=== PATIENT | female | born 1995 | race Caucasian/White ===

== ENCOUNTER 2018-05-12 14:49 | Emergency (ER) | payer MEDICAID ==
[2018-05-12] MEDS ORDERED: OXYMETAZOLINE HCL 0.05% NASAL SPRAY 15 ML BOTTLE NASL ONE (15:15)
[2018-05-12] MEDS ORDERED: ACETAMINOPHEN 325 MG TABLET PO ONE (15:16)
[2018-05-12] MEDS ORDERED: DIPHENHYDRAMINE HCL 50 MG CAPSULE PO ONE (15:18)
--- NOTE | 2018-05-12 15:51 | ER Document Report ---
ED General - General Chief Complaint: Nose Bleed Stated Complaint: BLOODY NOSE Time Seen by Provider: 05/12/18 15:06 Mode of Arrival: Ambulatory Information source: Patient, [facility] Records Notes: 22-year-old female with no reported past medical history at 22 weeks gestation presents with complaint of nosebleed that started 1 hour prior to arrival and self resolved upon my exam. Patient denies any injury to the nose. She does admits to some nasal congestion and associated frontal headache that she describes as a dull ache. She has not tried taking any Tylenol for this. She has been receiving care. She denies any abdominal pain or vaginal bleeding. TRAVEL OUTSIDE OF THE [place] IN LAST 30 DAYS: No - HPI Onset: Just prior to arrival Onset/Duration: Sudden, Gone Quality of pain: No pain Severity: Mild Associated symptoms: Headache Exacerbated by: Denies Relieved by: Denies Similar symptoms previously: No Recently seen / treated by doctor: No - Related Data Allergies/Adverse Reactions: No Known Allergies Allergy (Unverified 05/12/18 14:52) Past Medical History - General Information source: Patient, [facility] Records - Social History Smoking Status: Current Every Day Smoker Cigarette use (# per day): Yes - 8 Smoking Education Provided: Yes - Smoking cessation counseling was provided for 4 minutes at the bedside Frequency of alcohol use: None Drug Abuse: None Lives with: Family Family History: Reviewed & Not Pertinent Patient has suicidal ideation: No Patient has homicidal ideation: No - Medical History Medical History: Negative Renal/ Medical History: Denies: Hx Peritoneal Dialysis Review of Systems - Review of Systems Notes: REVIEW OF SYSTEMS: CONSTITUTIONAL : Denies fever, chills, or sweats. Denies recent illness. Denies weight loss, recent hospitalizations. EENT: Denies visual changes, eye pain. Denies sore throat, oral lesions, difficulty swallowing. CARDIOVASCULAR: Denies chest pain. Denies palpitations. Denies lower extremity edema. RESPIRATORY: Denies cough. Denies shortness of breath, wheezing. GASTROINTESTINAL: Denies abdominal pain or distention. Denies nausea, vomiting , or diarrhea. Denies blood in vomitus, stools, or per rectum. Denies black, tarry stools. Denies constipation. GENITOURINARY: Denies difficulty urinating, painful urination, frequency, blood in urine, or vaginal discharge. MUSCULOSKELETAL: Denies back or neck pain or stiffness. Denies joint pain or swelling. SKIN: Denies rash, lesions or sores. HEMATOLOGIC : Denies easy bruising or bleeding. LYMPHATIC: Denies swollen glands. NEUROLOGICAL: Denies confusion or altered mental status. Denies loss of consciousness. Denies dizziness or lightheadedness. Denies weakness or paralysis. Denies problems difficulty with ambulation, slurred speech. Denies sensory loss, numbness, or tingling. Denies seizures. PSYCHIATRIC: Denies anxiety or stress. Denies depression, suicidal ideation, or homicidal ideation. Denies visual or auditory hallucinations. Physical Exam - Vital signs Vitals: Temp Pulse Resp BP Pulse Ox 98.6 F 94 20 143/83 H 100 05/12/18 15:08 05/12/18 15:08 05/12/18 15:08 05/12/18 15:08 05/12/18 15:08 Interpretation: Hypertensive - Notes Notes: PHYSICAL EXAMINATION: GENERAL: Well-appearing, well-nourished and in no acute distress. HEAD: Atraumatic, normocephalic. EYES: Pupils equal round and reactive to light, extraocular movements intact, conjunctiva are normal. ENT: Nares patent, no active bleeding from the nose. Moist mucous membranes. NECK: Normal range of motion, supple without lymphadenopathy LUNGS: Breath sounds clear to auscultation bilaterally and equal. No wheezes rales or rhonchi. HEART: Regular rate and rhythm without murmurs ABDOMEN: Gravid, soft, nontender, nondistended abdomen. No guarding, no rebound. No masses appreciated. Female : deferred Musculoskeletal: Normal range of motion, no pitting or edema. No cyanosis. NEUROLOGICAL: Cranial nerves grossly intact. Normal speech, normal gait. Normal sensory, motor exams PSYCH: Normal mood, normal affect. SKIN: Warm, Dry, normal turgor, no rashes or lesions noted. Course - Re-evaluation Re-evalutation: 05/12/18 16:19 Patient was monitored in the emergency department for over an hour and a half without recurrence of bleeding. We did use Afrin during her ED course. 22-year-old female presents with a nosebleed that occurred just prior to arrival and self resolved upon my exam. Patient initially mildly hypertensive. We did discuss this and she states that her OB is monitoring her blood pressure because she does have a history of preeclampsia. Repeat blood pressure without intervention was within normal limits. Patient was given Afrin and monitored in the department for almost 2 hours. She had no recurrence of bleeding. She was advised to use nasal saline daily and Afrin for 3 days. Patient was evaluated and treated as appropriate for the patient's presenting symptoms and complaint, with consideration of any critical or life threatening conditions that may be associated with their obtained history and exam as noted above. All results were discussed with patient and... Patient provided the opportunity to ask questions, and express concerns. Patient was educated on treatments based on their presumed diagnosis as noted above. At this time we will discharge the patient with return precautions and follow-up recommendations. Verbal discharge instructions given a the bedside. Medication warnings reviewed. Patient is in agreement with this plan and has verbalized understanding of return precautions. After careful consideration I feel that that patient can be safely discharged from the emergency department, they were advised to followup with a primary care physician in 2-3 days. Dictation on this chart was performed using voice recognition software and may result in unintended grammatical, spelling, syntax or errors. 05/13/18 09:17 - Vital Signs Vital signs: Temp Pulse Resp BP Pulse Ox 98.6 F 86 17 129/79 H 100 05/12/18 16:15 05/12/18 16:15 05/12/18 16:15 05/12/18 16:15 05/12/18 16:15 Discharge - Discharge Clinical Impression: Nosebleed, Elevated blood pressure reading, Second trimester Condition: Good Disposition: HOME, SELF-CARE Instructions: Hypertension in ([facility]), Nosebleed Instructions ([facility]) Additional Instructions: You were seen today for a nosebleed. If this restarts please apply direct pressure to the area for 15 minutes without releasing pressure. You can use 4- 5 sprays the Afrin (oxymetazoline) spray that was given to you here in the emergency room into the affected side prior to applying the pressure. You need to apply vasaline or a similar product along the inside of the side of the nose that is bleeding twice daily to help heal the inside of your nose. Please return to emergency department if these measures do not control the bleeding. Please also return if you pass out, have significant pain of the nose or face, or any other symptoms that are concerning to you. Your primary care doctor regarding today's visit.it. Prescriptions: Sodium Chloride [[place] Nasal [place] 44 ml Bottle] 2 spray NASL BID #1 bottle Forms: Elevated Blood Pressure Referrals: CHEPE MOORE MD [ACTIVE STAFF] - Follow up in 3-5 days
[2018-05-12 16:15] VITALS: BP 129/79
== END 2018-05-12 16:18 | disposition home or self-care (01) ==
LOC: ER 14:49
DX: O26.892 Other specified pregnancy related conditions, second trimester (principal); R04.0 Epistaxis; R03.0 Elevated blood-pressure reading, without diagnosis of hypertension; R09.81 Nasal congestion; R51 Headache; O99.332 Smoking (tobacco) complicating pregnancy, second trimester; F17.210 Nicotine dependence, cigarettes, uncomplicated; Z71.6 Tobacco abuse counseling; Z3A.22 22 weeks gestation of pregnancy
CPT/HCPCS: 99406; 99283; J3490 ×3

== ENCOUNTER 2018-05-22 16:44 | Outpatient (CLI) | payer MEDICAID ==
[2018-05-22] MEDS ORDERED: RINGERS SOLUTION,LACTATED 1,000 ML IV PRN (17:05)
[2018-05-22] MEDS ORDERED: RINGERS SOLUTION,LACTATED 1,000 ML IV ONE (17:05)
[2018-05-22 17:44] LABS: BILIRUBIN,URINE NEGATIVE (NEGATIVE); GLUCOSE, URINE NEGATIVE (NEGATIVE); KETONES,URINE NEGATIVE (NEGATIVE); LEUKOCYTE ESTERASE,URINE TRACE (NEGATIVE); NITRITE,URINE NEGATIVE (NEGATIVE); PROTEIN,URINE >=500 mg/dL (NEGATIVE); URINE SPECIFIC GRAVITY 1.017; UROBILINOGEN,URINE NEGATIVE mg/dL (<2.0)
[2018-05-22 17:45] LABS: APPEARANCE,URINE TURBID; COLOR,URINE RED
[2018-05-22] MEDS ORDERED: CEFTRIAXONE INJ 1000 MG VIAL IV ONE (18:00)
[2018-05-22] MEDS ORDERED: CEFTRIAXONE INJ 1000 MG VIAL ONE (18:02)
[2018-05-22 18:37] LABS: URINE AMPHETAMINES SCREEN NEGATIVE; URINE BARBITURATES SCREEN NEGATIVE; URINE BENZODIAZEPINES SCREEN NEGATIVE; URINE COCAINE SCREEN NEGATIVE; URINE MARIJUANA (THC) SCREEN NEGATIVE; URINE METHADONE SCREEN NEGATIVE; URINE PHENCYCLIDINE SCREEN NEGATIVE
== END 2018-05-22 18:50 | disposition home or self-care (01) ==
LOC: LC 16:44
PROVIDERS: ATTEND Obstetrics & Gynecology Gynecology
PROC: 4A1HXCZ Monitoring of Products of Conception, Cardiac Rate, External Approach (ICD-10-PCS; principal; 2018-05-22)
DX: O23.42 Unspecified infection of urinary tract in pregnancy, second trimester (principal); Z3A.24 24 weeks gestation of pregnancy
CPT/HCPCS: 59899; 87086; 87088; 81001; 87186; 80307; J0696

== ENCOUNTER 2018-08-11 10:42 | Outpatient (CLI) | payer MEDICAID ==
[2018-08-11] MEDS ORDERED: NALBUPHINE HCL INJ 10 MG/1 ML AMPULE ONE (10:54)
[2018-08-11] MEDS ORDERED: PROMETHAZINE HCL INJ 25 MG/1 ML VIAL ONE (10:55)
--- NOTE | 2018-08-11 11:17 | Non Stress Test Report ---
Non Stress Test Datetime Report Generated by CPN: 08/11/2018 11:17 DEMOGRAPHIC EGA NST: 35.5 INDICATION Indication for Study: Other Indication for Study (NST) Other: repeat NST MONITORING Monitor Explained: Monitor Explained; Test Explained; Patient Verbalized Understanding Time on Monitor: 08/11/2018 10:52 Time off Monitor: 08/11/2018 11:15 NST Duration: 23 NST INTERVENTIONS NST Interventions: None Physician Notified NST: Le Corea CNM BABY A: [id number] BABY A Movement : Present Movement : Present Contraction Frequency : none Contraction Frequency : none FHR Baseline : 140 Accelerations : 15X15 Decelerations : None Decelerations : None Variability : Moderate 6-25bpm Variability : Moderate 6-25bpm NST Review: Meets Criteria for Reactive NST NST Review: Meets Criteria for Reactive NST NST Review and Verified By : Jacqueline Mendoza RN NST Results: Reactive NST Results: Reactive NST REPORT Report Trigger: Send Report
== END 2018-08-11 11:19 | disposition home or self-care (01) ==
LOC: LC 10:42
PROVIDERS: ATTEND Student in an Organized Health Care Education/Training Program
PROC: 4A1HXCZ Monitoring of Products of Conception, Cardiac Rate, External Approach (ICD-10-PCS; principal; 2018-08-11)
DX: O24.419 Gestational diabetes mellitus in pregnancy, unspecified control (principal); Z3A.35 35 weeks gestation of pregnancy
CPT/HCPCS: 59025; J2300; J2550

== ENCOUNTER 2018-08-26 12:07 | Inpatient (IN) | payer MEDICAID ==
[2018-08-26 12:41] LABS: APPEARANCE,URINE CLEAR; BILIRUBIN,URINE NEGATIVE (NEGATIVE); COLOR,URINE YELLOW; GLUCOSE, URINE NEGATIVE (NEGATIVE); KETONES,URINE NEGATIVE (NEGATIVE); LEUKOCYTE ESTERASE,URINE TRACE (NEGATIVE); NITRITE,URINE NEGATIVE (NEGATIVE); PROTEIN,URINE NEGATIVE (NEGATIVE); UROBILINOGEN,URINE NEGATIVE mg/dL (<2.0)
[2018-08-26] MEDS ORDERED: BUTALB/ACETAMINOPHEN/CAFFEINE 1 TAB EACH ONE (12:46)
[2018-08-26] MEDS ORDERED: BUTALB/ACETAMINOPHEN/CAFFEINE 1 TAB EACH PO ONE (12:48)
[2018-08-26] MEDS ORDERED: RINGERS SOLUTION,LACTATED 1,000 ML IV ONE (12:51)
[2018-08-26] MEDS ORDERED: DINOPROSTONE 10 MG VAGINAL INSERT.SR PV PRN (12:57)
[2018-08-26 13:00] LABS: URINE AMPHETAMINES SCREEN NEGATIVE; URINE BARBITURATES SCREEN NEGATIVE; URINE BENZODIAZEPINES SCREEN NEGATIVE; URINE COCAINE SCREEN NEGATIVE; URINE MARIJUANA (THC) SCREEN NEGATIVE; URINE METHADONE SCREEN NEGATIVE; URINE PHENCYCLIDINE SCREEN NEGATIVE
[2018-08-26 13:01] LABS: UR PRO/CREAT RATIO RESULT 0.3 mg/mg (0.0-0.2); URINE CREATININE 84.2 mg/dL (16-327)
[2018-08-26 13:14] LABS: ABSOLUTE EOSINOPHILS # (AUTO) 0.1 10^3/uL (0.0-0.6); ABSOLUTE LYMPHOCYTES (AUTO) 1.9 10^3/uL (0.5-4.7); ABSOLUTE MONOCYTES (AUTO) 0.4 10^3/uL (0.1-1.4); ABSOLUTE NEUT (AUTO) 6.4 10^3/uL (1.7-8.2); BASOPHILS % (AUTO) 0.5 % (0-2); EOSINOPHILS % (AUTO) 0.6 % (0-6); HEMOGLOBIN 11.3 g/dL (12.0-15.5); LYMPHOCYTES % (AUTO) 21.6 % (13-45); MEAN CORPUSCULAR HEMOGLOBIN 28.6 pg (27.0-33.4); MEAN CORPUSCULAR HGB CONC 34.3 g/dL (32.0-36.0); MEAN CORPUSCULAR VOLUME 84 fl (80-97); MONOCYTES % (AUTO) 4.5 % (3-13); PLATELET COUNT 240 10^3/uL (150-450); RED BLOOD COUNT 3.95 10^6/uL (3.72-5.28); RED CELL DISTRIBUTION WIDTH 15.3 % (11.5-14.0); SEGMENTED NEUTROPHILS % (AUTO) 72.8 % (42-78); TOTAL CELLS COUNTED % (AUTO) 100 %; WHITE BLOOD COUNT 8.7 10^3/uL (4.0-10.5)
--- NOTE | 2018-08-26 13:23 | Admission Physical ---
Datetime Report Generated by CPN: 08/26/2018 13:22 CURRENT ADMISSION Chief Complaint: Other Chief Complaint Other: To L_D today for c/o high bp at home this am and headache Indication for Induction: PreEclampsia Admit Impression : Term, Intrauterine ; No Active Labor Admit Plan: Admit to Unit Admit Plan- Other: Pr/Cr ratio 0.4mg on 08/21/18 ALLERGIES Medication Allergies: No Medication Allergies: No Known Allergies (08/26/2018) Latex: No Latex Allergies OBSTETRICAL HISTORY EDC: 09/10/2018 00:00 : 2 (Annotations: Data stored by [facility] on behalf of user) Para: 1 Livin Gestational Diabetes: No Rh Sensitization: No Incompetent Cervix: No DOC: No Infertility: No ART Treatment: No Uterine Anomaly: No IUGR: No Hx Previous C/S: No Macrosomia: No Hx Loss/Stillborn: No PIH: No Hx : No Placenta Previa/Abruption: No Depression/PP Depression: No PTL/PROM: No Post Hemorrhage: No Obstetrical History Comments: G1 2011 boy G2 current SEE RECORDS Alcohol: No Marijuana : No Cocaine: No Other Illicit Drugs: No Cigarettes: Current Everyday Smoker. [id number] MEDICAL HISTORY Diabetes: No Diabetes Type: Gestational Diabetes Blood Transfusion: No Pulmonary Disease (Asthma, TB): No Breast Disease: No Hypertension: No Pediatric Oncologist Surgery: No Heart Disease: No Hosp/Surgery: No Autoimmune Disorder: No Anesthetic Complications: No Kidney Disease: No Abnormal Pap Smear: No Neuro/Epilepsy: No Psychiatric Disorders: No Other Medical Diseases: No Hepatitis/Liver Disease: No Significant Family History: No Varicosities/Phlebitis: No Trauma/Violence : No Thyroid Dysfunction: No INFECTIOUS HISTORY Gonorrhea: No Genital Herpes: No Chlamydia: No Tuberculosis: No Syphilis: No Hepatitis: No HIV/AIDS Exposure: No Rash or Viral Illness: No HPV: No PHYSICAL EXAM General: Normal HEENT: Deferred Neurologic: Normal Thyroid: Deferred Heart: Normal Lungs: Normal Breast: Deferred Back: Deferred Abdomen: Normal Genitourinary Exam: Normal Extremities: Deferred DTRs: Deferred Pelvic Type: Adequate Physical Exam Comments: Cervix Closed in office yesterday per Dr. Mendoza Exam Vital Signs: Reviewed FETUS A EGA: 37.6 Monitoring: External US FHR- Baseline: 145 Variability: Moderate 6-25bpm Accelerations: 15X15 Decelerations: None Presentation: Vertex Admit Comment: CHTN with superimposed Pre Eclampsia at >37wks Headache reports bp at home 150s/90s this am Obesity hx Pre Eclampsia with Del at 34wks GDM Discussed plan with Dr. Mendoza, admit or IOL with cervidil PLANS FOR LABOR AND DELIVERY Feeding Preference: Formula Benefit of Breast Feed Discussed: Yes Circumcision: Yes INFORMED CONSENT Assignment: Cassie Mendoza MD Signature: with User ID: [email or web address] : with User ID: [email or web address]
[2018-08-26 13:33] LABS: ALANINE AMINOTRANSFERASE 23 U/L (9-52); ALBUMIN 3.2 g/dL (3.5-5.0); ALKALINE PHOSPHATASE 97 U/L (38-126); ANION GAP 7 (5-19); ASPARTATE AMINO TRANSFERASE 17 U/L (14-36); BILIRUBIN,DIRECT 0.1 mg/dL (0.0-0.4); BILIRUBIN,TOTAL 0.2 mg/dL (0.2-1.3); BLOOD UREA NITROGEN 4 mg/dL (7-20); CALCIUM 9.1 mg/dL (8.4-10.2); CARBON DIOXIDE 23 mmol/L (22-30); CHLORIDE 107 mmol/L (98-107); GLUCOSE 121 mg/dL (75-110); POTASSIUM 3.3 mmol/L (3.6-5.0); TOTAL PROTEIN 5.8 g/dL (6.3-8.2)
[2018-08-26] MEDS ORDERED: DINOPROSTONE 10 MG VAGINAL INSERT.SR ONE (14:41)
[2018-08-26] MEDS: RINGERS SOLUTION,LACTATED 1,000 ML IV PRN (14:43)
[2018-08-26] MEDS ORDERED: ZOLPIDEM TARTRATE 5 MG TABLET PO ONE (19:46)
[2018-08-26] MEDS ORDERED: ZOLPIDEM TARTRATE 5 MG TABLET ONE (19:47)
[2018-08-27] MEDS ORDERED: MISOPROSTOL 0.1 MG TABLET PV ONE (04:30)
[2018-08-27] MEDS ORDERED: MISOPROSTOL 0.1 MG TABLET PO ONE (04:30)
[2018-08-27] MEDS ORDERED: MISOPROSTOL 0.1 MG TABLET ONE (05:04)
[2018-08-27] MEDS ORDERED: MAG HYDROX/AL HYDROX/SIMETH SUSP 30 ML UDCUP ONE (05:04)
[2018-08-27] MEDS: RINGERS SOLUTION,LACTATED 1,000 ML IV PRN (05:17)
[2018-08-27] MEDS ORDERED: MAG HYDROX/AL HYDROX/SIMETH SUSP 30 ML UDCUP PO ONE (05:30)
[2018-08-27] MEDS ORDERED: OXYTOCIN/NORMAL SALINE 20 UNIT/1,000 ML RTUINJ IV PRN (08:07)
[2018-08-27] MEDS ORDERED: OXYTOCIN/NORMAL SALINE 20 UNIT/1,000 ML RTUINJ ONE (09:19)
[2018-08-27] MEDS ORDERED: MISOPROSTOL 0.2 MG TABLET ONE (09:19)
[2018-08-27] MEDS ORDERED: OXYTOCIN 10 UNIT/ML VIAL ONE (09:19)
[2018-08-27] MEDS ORDERED: LIDOCAINE 1% INJ-PF (10 MG/ML) 30 ML SDV ONE (09:19)
--- NOTE | 2018-08-27 10:17 | L&D Progress Notes ---
PROGRESS NOTES Datetime Report Generated by CPN: 08/27/2018 10:17 PROGRESS NOTE Impression: Reassuring Heart Rate Procedures: Sterile Vag Exam Plan: Continue Present Management; Induction Vital Signs : Reviewed Vital Signs Comments: mild range elevated BP Comment: at 38 weeks with GHTN-asymptomatic. pitocin infusing at 2mu/min. GBS neg. plans epidural. P:AROM soon, cont. pitocin IOL, epidural upon request, anticipate VAGINAL EXAM Dilatation: 4 Effacement: 50 Station: -2 Contractions: irreg LAST VAGINAL EXAM-NURSING Dilitation: 4.0 Dilitation: 1.0 Dilitation: closed Effacement: 50 Effacement: thick Effacement: thick Station: -2 Station: high MEMBRANES Pooling: Negative Membranes: Intact FETUS A FHR - Baseline: 125 Monitoring: External US Variability: Moderate 6-25bpm Accelerations: 15X15 Decelerations: None : 38.0 : 37.6 Estimated Weight (gm): 3200 Presentation: Vertex SIGNATURE SIGNATURE: [id number];[id number];[id number] SIGNATURE: [id number];[id number] SIGNATURE: [id number] Assignment: Kathy Hickman MD Signature: with User ID: [email or web address] : with User ID: [email or web address]
[2018-08-27] MEDS ORDERED: FENTANYL/BUPIVACAINE/NS/PF 300 MCG/150 ML RTUINJ EPI ONE (11:11)
[2018-08-27] MEDS ORDERED: BUPIVACAINE HCL 0.25 % INJ/PF (2.5 MG/1 ML) 30 ML VIAL ONE (11:11)
[2018-08-27] MEDS ORDERED: EPHEDRINE SULFATE INJ 50 MG/1 ML AMPULE ONE (11:11)
[2018-08-27] MEDS ORDERED: LIDOCAINE 2%/EPINEPHRINE INJ 20 ML VIAL ONE (11:13)
[2018-08-27] MEDS ORDERED: LIDOCAINE 1.5%/EPINEPHRINE INJ-PF 30 ML SDV ONE (11:14)
[2018-08-27] MEDS ORDERED: CITRIC ACID/SODIUM CITRATE ORAL SOLN 15 ML UDCUP PO ONE (13:31)
[2018-08-27] MEDS ORDERED: CITRIC ACID/SODIUM CITRATE ORAL SOLN 15 ML UDCUP ONE (13:33)
[2018-08-27] MEDS ORDERED: ACETAMINOPHEN 325 MG TABLET ONE (14:52)
[2018-08-27] MEDS ORDERED: ACETAMINOPHEN 325 MG TABLET PO ONE (14:55)
--- NOTE | 2018-08-27 17:57 | Delivery Summary ---
Del Sum A-C Datetime Report Generated by CPN: 08/27/2018 17:57 DELIVERY PERSONNEL DELIVERY PERSONNEL: [id number] Delivery Doctor:: Deepika Mckee CNM Labor and Delivery Nurse:: Yinka Doty RNpackage car driver Nurse:: Meena Lea RN Nursery Nurse:: Alem Rodrigues RN/ after delivery MATERNAL INFORMATION Delivery Anesthesia: Epidural Medications After Delivery: Pitocin Bolus-Please Comment Meds After Delivery Comment: 20 units in NS Maternal Complications: None Provider Comments: SILVER VIABLE MALE WITH SPONTANEOUS CRY, CORD DOUBLE CLAMPED AND CUT. SPONTANEOUS PLACENTA INTACT WITH 3VC. ADHERANT MEMBRANES MANUALLY REMOVED AND UTERUS EXPLORED, CLOTS EXTRACTED. CYTOTEC 1000MCG [place] GIVEN FOR UTERINE ATONY. MOTHER AND BABY STABLE IN L_D#2. LABOR SUMMARY EDC: 09/10/2018 00:00 No. Babies in Womb: 1 Attempted: No Labor Anesthesia: Epidural LABOR INFORMATION Reason for Induction: Chronic Primary/Essential HTN; Gestational Hypertension; Maternal Diabetes Onset of Labor: 08/27/2018 10:04 Complete Dilatation: 08/27/2018 15:17 Cervical Ripening Agents: Cervidil; Cytotec @ Oxytocin: Induction Group B Beta Strep: Negative Antibiotics # of Doses: 0 Steroids Given: None Reason Steroids Not Administered: Not Applicable MEMBRANES Membranes Rupture Method: Artificial Rupture of Membranes: 08/27/2018 10:47 Length of Rupture (hr): 4.63 Amniotic Fluid Color: Clear Amniotic Fluid Amount: Scant Amniotic Fluid Odor: Normal STAGES OF LABOR Stage 1 hr: 5 Stage 1 min: 13 Stage 2 hr: 0 Stage 2 min: 8 Stage 3 hr: 0 Stage 3 min: 5 Total Time in Labor hr: 5 Total Time in Labor min: 26 VAGINAL DELIVERY Episiotomy: None Laceration #1: None Laceration Extension #1: N/A Laceration Repair: Not Applicable Sponge Count Correct: N/A Sharps Count Correct: N/A CSECTION DELIVERY Primary Indication: N/A Secondary Indication: N/A CSection Incidence: N/A Labor: N/A Elective: N/A CSection Incision: N/A BABY A INFORMATION Delivery Date/Time: 08/27/2018 15:25 Method of Delivery: Vaginal Born in Route : No : N/A Forceps: N/A Vacuum Extraction: N/A Shoulder Dystocia : No PRESENTATION/POSITION BABY A Presentation: Cephalic Cephalic Presentation: Vertex Vertex Position: Left Occipital Anterior Breech Presentation: N/A PLACENTA INFORMATION BABY A Placenta Delivery Time : 08/27/2018 15:30 Placenta Method of Delivery: Spontaneous Placenta Status: Delivered SCORES BABY A Heart Rate 1 min: >100 bpm Resp Effort 1 min: Good Cry Reflex Irritability 1 min: Cough or Sneeze or Pulls Away Muscle Tone 1 min: Active Motion Color 1 min: Body [place], Extremities Blue Resuscitation Effort 1 min: Tactile Stimulation SCORE 1 MIN: 9 Heart Rate 5 min: >100 bpm Resp Effort 5 min: Good Cry Reflex Irritability 5 min: Cough or Sneeze or Pulls Away Muscle Tone 5 min: Active Motion Color 5 min: Body [place], Extremities Blue SCORE 5 MIN: 9 INFORMATION BABY A Gestational Age at Delivery: 38.0 Gestational Status: Early Term- 37- 38.6 Weeks Outcome : Liveborn Condition : Stable Infant Sex: Male IDENTIFICATION BABY A Verification Date/Time: 08/27/2018 16:05 ID Band Number: [id number] Mother's Name Verified: Yes RN Verifying : Molly Lea, RN/ JZoie Barboursylvia, RN WEIGHT/LENGTH BABY A Infant Birthweight (gm): 3399 Weight (lb): 7 Weight (oz): 8 Length (in): 19.50 Length (cm): 49.53 CORD INFORMATION BABY A No. Cord Vessels: 3 Nuchal Cord : N/A Cord Blood Taken: Yes-For Eval (Mom's Blood Type - or O+) Infant Suction: Mouth; Nose ASSESSMENT BABY A Infant Complications: None Physical Findings at Delivery: Within Normal Limits Respirations: Appears Normal Field Crop Farmer/ALS Called : No Care By: R. Danny, RN Transferred To: Remains with Mother BABY B INFORMATION : N/A SIGNATURES Assignment: Kathy Hickman MD Signature: with User ID: [email or web address] : with User ID: [email or web address] : I was personally available for consultation and serving as supervising physician for the MLP.
[2018-08-27] MEDS ORDERED: OXYTOCIN/NORMAL SALINE 1,000 ML IV PRN (18:13)
[2018-08-27] MEDS ORDERED: ZOLPIDEM TARTRATE 5 MG TABLET PO PRN (18:13)
[2018-08-27] MEDS ORDERED: DIBUCAINE 1% OINTMENT 28 GM TP PRN (18:13)
[2018-08-27] MEDS ORDERED: MEASLES,MUMPS&RUBELLA VACC/PF 0.5 ML VIAL SUBCUT PRN (18:13)
[2018-08-27] MEDS ORDERED: BENZOCAINE/MENTHOL AEROSOL SPRAY 56 ML TOP PRN (18:13)
[2018-08-27] MEDS ORDERED: DIPH/PERTUSS(ACELL)/TETANUS VAC/PF 0.5 ML SYR (>=10YO) IM PRN (18:13)
[2018-08-27] MEDS ORDERED: ACETAMINOPHEN WITH CODEINE #3 TABLET PO PRN (18:13)
[2018-08-27] MEDS: IBUPROFEN 800 MG TABLET PO SCH (21:33)
[2018-08-28] MEDS: IBUPROFEN 800 MG TABLET PO SCH ×3 (05:45→21:03)
[2018-08-28 06:45] LABS: HEMATOCRIT 27.8 % (36.0-47.0); HEMOGLOBIN 9.6 g/dL (12.0-15.5); MEAN CORPUSCULAR HEMOGLOBIN 29.5 pg (27.0-33.4); MEAN CORPUSCULAR HGB CONC 34.7 g/dL (32.0-36.0); MEAN CORPUSCULAR VOLUME 85 fl (80-97); PLATELET COUNT 200 10^3/uL (150-450); RED BLOOD COUNT 3.27 10^6/uL (3.72-5.28); RED CELL DISTRIBUTION WIDTH 15.1 % (11.5-14.0); WHITE BLOOD COUNT 10.2 10^3/uL (4.0-10.5)
--- NOTE | 2018-08-28 08:55 | PDOC PROGRESS REPORT ---
Subjective-OB Progress Note for:: 08/28/18 Physical Exam (OB) Vital Signs: Temp Pulse Resp BP Pulse Ox 98.4 F 90 18 142/69 H 97 08/27/18 17:57 08/27/18 17:57 08/27/18 17:57 08/27/18 17:57 08/27/18 17:57 Intake & Output 08/27/18 08/28/18 08/29/18 06:59 06:59 06:59 Intake Total 1000 1000 Balance 1000 1000 Weight 109.7 kg - PIH/Pre-Eclampsia DTR's: 2 + Clonus: Negative Headache: Absent Epigastric Pain: No Visual Changes: No - Lochia Lochia Amount: Moderate 25-50 ml Lochia Color: Rubra/Red - Abdomen Description: Soft, Round Hernia Present: No Bowel Sounds: Normoactive Flatus Presence: Present Stool: No Fundal Description: Firm Fundal Height: u/u - u/2 Objective-Diagnostic Laboratory: 08/28/18 06:32 08/26/18 12:57 08/28/18 06:32 WBC 10.2 RBC 3.27 L Hgb 9.6 L Hct 27.8 L MCV 85 MCH 29.5 MCHC 34.7 RDW 15.1 H Plt Count 200
[2018-08-28] MEDS: PRENATAL VITAMIN W DHA CAPSULE PO SCH (10:05)
[2018-08-28] MEDS: SENNOSIDES/DOCUSATE 8.6-50 MG 1 EACH TABLET PO SCH (10:05)
[2018-08-28] MEDS: DOCUSATE SODIUM 100 MG CAPSULE PO SCH ×2 (10:05→17:33)
[2018-08-28] MEDS: FERROUS SULFATE 325 MG TABLET PO SCH ×2 (10:05→17:33)
[2018-08-28] MEDS: ACETAMINOPHEN WITH CODEINE #3 TABLET PO PRN ×2 (10:12→22:20)
[2018-08-28] MEDS: FAMOTIDINE 20 MG TABLET PO SCH ×2 (12:20→21:03)
[2018-08-28] MEDS: LORATADINE 10 MG TABLET PO SCH (12:20)
[2018-08-29] MEDS: IBUPROFEN 800 MG TABLET PO SCH (05:08)
--- NOTE | 2018-08-29 09:18 | PDOC DISCHARGE SUMMARY ---
Final Diagnosis Discharge Date: 08/29/18 - PP Day #2, pt doing well, bottle feeding, plans PP BTL. O+, Rubella Immune, Desires Depo Provera today. - Final Diagnosis (1) Anemia, Is this a current diagnosis for this admission?: Yes (2) Chronic hypertension with superimposed preeclampsia Is this a current diagnosis for this admission?: Yes (3) Gestational diabetes Is this a current diagnosis for this admission?: Yes (4) Obesity affecting in third trimester Is this a current diagnosis for this admission?: Yes Discharge Data - Discharge Medication Prescriptions: Ferrous Sulfate [Feosol 325 mg Tablet] 325 mg PO DAILY 30 Days #30 tablet Ibuprofen [Motrin 800 mg Tablet] 800 mg PO Q8 #60 tablet Home Medications: Pnv No.121/Iron/Folic Acid [ Multivitamin Tablet] 1 tab PO DAILY 05/22/18 Ferrous Sulfate [Feosol 325 mg Tablet] 325 mg PO DAILY 30 Days #30 tablet 08/29/18 Ibuprofen [Motrin 800 mg Tablet] 800 mg PO Q8 #60 tablet 08/29/18 Reason(s) for Admission: Induction of Labor, Obstetric Complications Admission Note: Hx CHTN, GDM Procedures: NST, Ultrasound, Management of Obstetric Complications Intrapartum Procedure(s): Spontaneous Vaginal Delivery - Diagnosis Test Laboratory: Temp Pulse Resp BP Pulse Ox 98.2 F 66 14 145/91 H 99 08/28/18 20:00 08/28/18 20:00 08/28/18 20:00 08/28/18 20:00 08/28/18 20:00 08/26/18 08/26/18 08/28/18 12:11 12:57 06:32 RBC 3.95 3.27 L Hgb 11.3 L 9.6 L Hct 33.0 L 27.8 L Urine Opiates Screen NEGATIVE - Discharge information/Instructions Discharge Activity: Activity As Tolerated, No Lifting Over 10 Pounds, Pelvic Rest Discharge Diet: As Tolerated, Regular Disposition: HOME, SELF-CARE Follow up with: [facility] in: 1, Weeks - for BP check
[2018-08-29] MEDS ORDERED: MEDROXYPROGESTERONE ACET INJ 150 MG/1 ML VIAL IM ONE ×2 (09:20→11:30)
[2018-08-29 09:21] VITALS: BP 133/72
[2018-08-29] MEDS: PRENATAL VITAMIN W DHA CAPSULE PO SCH (09:56)
[2018-08-29] MEDS: SENNOSIDES/DOCUSATE 8.6-50 MG 1 EACH TABLET PO SCH (09:56)
[2018-08-29] MEDS: DOCUSATE SODIUM 100 MG CAPSULE PO SCH (09:56)
[2018-08-29] MEDS: FERROUS SULFATE 325 MG TABLET PO SCH (09:56)
[2018-08-29] MEDS: LORATADINE 10 MG TABLET PO SCH (09:57)
[2018-08-29] MEDS: FAMOTIDINE 20 MG TABLET PO SCH (09:57)
== END 2018-08-29 11:55 | disposition home or self-care (01) | DRG 807 ==
LOC: LC 12:07 → LR 12:53 → 2S 08-27 17:45
PROVIDERS: ADMIT Obstetrics & Gynecology; ATTEND Obstetrics & Gynecology
PROC: 4A1HXCZ Monitoring of Products of Conception, Cardiac Rate, External Approach (ICD-10-PCS; 2018-08-26)
PROC: 10E0XZZ Delivery of Products of Conception, External Approach (ICD-10-PCS; principal; 2018-08-27)
PROC: 3E0P7VZ Introduction of Hormone into Female Reproductive, Via Natural or Artificial Opening (ICD-10-PCS; 2018-08-27)
PROC: 3E033VJ Introduction of Other Hormone into Peripheral Vein, Percutaneous Approach (ICD-10-PCS; 2018-08-27)
PROC: 10907ZC Drainage of Amniotic Fluid, Therapeutic from Products of Conception, Via Natural or Artificial Opening (ICD-10-PCS; 2018-08-27)
DX: O11.4 Pre-existing hypertension with pre-eclampsia, complicating childbirth (principal); Z37.0 Single live birth; O10.92 Unspecified pre-existing hypertension complicating childbirth; O90.81 Anemia of the puerperium; D64.9 Anemia, unspecified; O99.213 Obesity complicating pregnancy, third trimester; E66.9 Obesity, unspecified; O24.429 Gestational diabetes mellitus in childbirth, unspecified control; O99.334 Smoking (tobacco) complicating childbirth; F17.210 Nicotine dependence, cigarettes, uncomplicated; Z3A.38 38 weeks gestation of pregnancy
CPT/HCPCS: 36415; 80053; 80307; 81001; 82570; 82962; 83615; 84156; 84550; 85025; 85027; 86592; 86850; 86900; 86901; 94760; J1050; J2590; J3010; J3490

== ENCOUNTER 2018-09-02 20:37 | Emergency (ER) | payer MEDICAID ==
--- NOTE | 2018-09-02 22:12 | ER Document Report ---
ED Blood Pressure Problem - General Chief Complaint: High Blood Pressure Stated Complaint: HIGH BLOOD PRESSURE Time Seen by Provider: 09/02/18 22:06 Primary Care Provider: TRINA DAMICO CNM [Primary Care Provider] - Follow up as needed Mode of Arrival: Ambulatory Information source: Patient Notes: Patient is a 22-year-old female who is 6 days and presents with elevated blood pressure as well as a headache. Patient reports that her was uncomplicated, she had a normal 24-hour urine collection during , however she did have increasing blood pressures as well as an elevated urine protein the day before her delivery. She presented to her [facility] yesterday, reports having a blood pressure of "160s/90s" and was prescribed oral nifedipine. Today her blood pressure was unchanged and her headache was no better. She denies fevers or chills, no vision changes, no confusion or disorientation, no ataxia, no head injuries. TRAVEL OUTSIDE OF THE [place] IN LAST 30 DAYS: No - HPI Patient complains to provider of: High blood pressure Onset: Yesterday Onset/Duration: Gradual Quality of pain: No pain Severity: Mild Pain Level: 1 Problem is: New problem Pt currently taking medication for problem: Yes - Nifedipine Associated symptoms: Headache Similar symptoms previously: Yes Recently seen / treated by doctor: No - Related Data Allergies/Adverse Reactions: No Known Allergies Allergy (Verified 08/26/18 12:18) Past Medical History - General Information source: Patient - Social History Smoking Status: Current Every Day Smoker Chew tobacco use (# tins/day): No Frequency of alcohol use: None Drug Abuse: None Lives with: Family Family History: Reviewed & Not Pertinent Patient has suicidal ideation: No Patient has homicidal ideation: No - Past Medical History Cardiac Medical History: Reports: None Pulmonary Medical History: Reports: None EENT Medical History: Reports: None Neurological Medical History: Reports: None Endocrine Medical History: Reports: None Renal/ Medical History: Reports: None. Denies: Hx Peritoneal Dialysis Malignancy Medical History: Reports: None GI Medical History: Reports: None Musculoskeletal Medical History: Reports None Skin Medical History: Reports None Psychiatric Medical History: Reports: None Traumatic Medical History: Reports: None Infectious Medical History: Reports: None Surgical Hx: Negative Past Surgical History: Reports: None - Immunizations Immunizations up to date: Yes Hx Diphtheria, Pertussis, Tetanus Vaccination: Yes Review of Systems - Review of Systems Constitutional: No symptoms reported EENT: No symptoms reported Cardiovascular: No symptoms reported Respiratory: No symptoms reported Gastrointestinal: No symptoms reported Genitourinary: No symptoms reported Female Genitourinary: No symptoms reported Musculoskeletal: No symptoms reported Skin: No symptoms reported Hematologic/Lymphatic: No symptoms reported Neurological/Psychological: See HPI, Headaches -: Yes All other systems reviewed and negative Physical Exam - Vital signs Vitals: Temp Pulse Resp BP Pulse Ox 99.1 F 86 16 163/94 H 100 09/02/18 20:58 09/02/18 20:58 09/02/18 20:58 09/02/18 20:58 09/02/18 20:58 Interpretation: Normal - Notes Notes: Well-appearing in no acute distress - General General appearance: Appears well, Alert - HEENT Head: Normocephalic, Atraumatic Eyes: Normal Pupils: PERRL - Respiratory Respiratory status: No respiratory distress Chest status: Nontender Breath sounds: Normal Chest palpation: Normal - Cardiovascular Rhythm: Regular Heart sounds: Normal auscultation Murmur: No - Abdominal Inspection: Normal Distension: No distension Bowel sounds: Normal Tenderness: Nontender Organomegaly: No organomegaly - Rectal Notes: Deferred - Genitourinary Notes: Deferred - Back Back: Normal, Nontender - Extremities General upper extremity: Normal inspection, Nontender, Normal color, Normal ROM, Normal temperature General lower extremity: Normal inspection, Nontender, Normal color, Normal ROM, Normal temperature, Normal weight bearing. No: Esther's sign - Neurological Neuro grossly intact: Yes Cognition: Normal Orientation: AAOx4 [place] Coma Scale Eye Opening: Spontaneous [place] Coma Scale Verbal: Oriented [place] Coma Scale Motor: Obeys Commands [place] Coma Scale Total: 15 Speech: Normal Motor strength normal: LUE, RUE, LLE, RLE Sensory: Normal - Psychological Associated symptoms: Normal affect, Normal mood - Skin Skin Temperature: Warm Skin Moisture: Dry Skin Color: Normal Course - Re-evaluation Re-evalutation: 09/02/18 22:42 Patient is nontoxic-appearing, repeat blood pressure in the 140s/80s. Neurological exam is normal. Patient is not breast-feeding. She will be given intramuscular Toradol as well as oral Fioricet and will be reassessed. 09/03/18 00:49 Headache has improved and nearly resolved. She will be discharged home with return precautions and follow-up as needed. Patient voices both understanding and agreeing with the plan. - Vital Signs Vital signs: Temp Pulse Resp BP Pulse Ox 99.1 F 86 16 147/76 H 100 09/02/18 20:58 09/02/18 20:58 09/02/18 20:58 09/02/18 22:23 09/02/18 20:58 Discharge - Discharge Clinical Impression: Essential hypertension Headache Qualifiers: Headache type: cluster Headache chronicity pattern: unspecified pattern Intractability: not intractable Qualified Code(s): G44.009 - Cluster headache syndrome, unspecified, not intractable Condition: Good Disposition: HOME, SELF-CARE Instructions: High Blood Pressure ([facility]) Additional Instructions: Please follow-up with your [facility] as instructed. Return to the emergency department if you experience vision changes, confusion, difficulty walking, or have any other concerning symptom. Prescriptions: Butalb/Acetaminophen/Caffeine [Fioricet (50-325-40 mg) Tablet] 1 tab PO Q4HP PRN #30 tab PRN Reason: Referrals: TRINA DAMICO CNM [Primary Care Provider] - Follow up as needed Print Language: Estonian
[2018-09-02] MEDS ORDERED: BUTALB/ACETAMINOPHEN/CAFFEINE 1 TAB EACH PO ONE (23:11)
[2018-09-02] MEDS ORDERED: KETOROLAC TROMETHAMINE 60 MG/2 ML SDV IM ONE (23:11)
[2018-09-03 00:56] VITALS: BP 156/81
== END 2018-09-03 01:07 | disposition home or self-care (01) ==
LOC: ER 20:37
DX: G44.009 Cluster headache syndrome, unspecified, not intractable (principal); I10 Essential (primary) hypertension; Z79.899 Other long term (current) drug therapy; F17.200 Nicotine dependence, unspecified, uncomplicated
CPT/HCPCS: 99283; 96372; J3490; J1885

== ENCOUNTER 2018-10-24 08:31 | Day surgery (SDC) | payer MEDICAID ==
[2018-10-23 10:51] LABS: HEMATOCRIT 40.2 % (36.0-47.0); HEMOGLOBIN 13.7 g/dL (12.0-15.5); MEAN CORPUSCULAR HEMOGLOBIN 27.9 pg (27.0-33.4); MEAN CORPUSCULAR VOLUME 82 fl (80-97); PLATELET COUNT 342 10^3/uL (150-450); RED CELL DISTRIBUTION WIDTH 15.2 % (11.5-14.0); WHITE BLOOD COUNT 9.6 10^3/uL (4.0-10.5)
[2018-10-23 10:52] LABS: APPEARANCE,URINE SLIGHTLY-CLOUDY; BILIRUBIN,URINE NEGATIVE (NEGATIVE); COLOR,URINE YELLOW; GLUCOSE, URINE NEGATIVE (NEGATIVE); KETONES,URINE NEGATIVE (NEGATIVE); LEUKOCYTE ESTERASE,URINE MODERATE (NEGATIVE); NITRITE,URINE NEGATIVE (NEGATIVE); PROTEIN,URINE NEGATIVE (NEGATIVE); URINE SPECIFIC GRAVITY 1.004; UROBILINOGEN,URINE NEGATIVE mg/dL (<2.0)
[~2018-10-24 08:31] MED LIST: LACTATED RINGERS 1000 ML IV PRN; LIDOCAINE 0.5% INJ-PF (5 MG/ML) 50 ML SDV SUBCUT PRN
[2018-10-24] MEDS ORDERED: ALBUTEROL SULFATE 0.083% NEB 2.5 MG/3 ML AMPUL NEB ONE (09:16)
[2018-10-24] MEDS ORDERED: BUPIVACAINE HCL 0.25 % INJ/PF (2.5 MG/1 ML) 30 ML VIAL ONE (09:17)
[2018-10-24] MEDS ORDERED: SCOPOLAMINE HYDROBROMIDE 1.5 MG PATCH.TD72 ONE (09:45)
[2018-10-24] MEDS ORDERED: FAMOTIDINE INJ/PF 20 MG/2 ML SDV IV ONE (09:47)
[2018-10-24] MEDS ORDERED: MIDAZOLAM 2 MG/2 ML INJ ONE (10:35)
[2018-10-24] MEDS ORDERED: FENTANYL CITRATE INJ/PF 100 MCG/2 ML AMPUL ONE (10:35)
[2018-10-24] MEDS ORDERED: MORPHINE SULFATE 10 MG/ML INJ ONE (10:36)
[2018-10-24] MEDS ORDERED: PROPOFOL INJ 200 MG/20 ML VIAL IV ONE (10:36)
[2018-10-24] MEDS ORDERED: DEXAMETHASONE SOD PHOSPHATE INJ 4 MG/1 ML VIAL ONE (10:36)
[2018-10-24] MEDS ORDERED: ONDANSETRON HCL INJ/PF 4 MG/2 ML SDV ONE (10:36)
[2018-10-24] MEDS ORDERED: MEPERIDINE HCL/PF INJ 25 MG/1 ML DISP.SYRIN IV PRN (11:02)
[2018-10-24] MEDS ORDERED: FENTANYL CITRATE INJ/PF 100 MCG/2 ML AMPUL IV PRN ×3 (11:02)
[2018-10-24] MEDS ORDERED: PROMETHAZINE HCL INJ 25 MG/1 ML VIAL IV PRN ×2 (11:02)
[2018-10-24] MEDS ORDERED: DIPHENHYDRAMINE HCL 50 MG/ML VIAL IV PRN (11:02)
[2018-10-24] MEDS ORDERED: MORPHINE SULFATE 10 MG/ML INJ IV PRN (11:02)
[2018-10-24] MEDS ORDERED: ACETAMINOPHEN 1,000 MG/100 ML RTUPB IV ONE (11:20)
[2018-10-24] MEDS: FENTANYL CITRATE INJ/PF 100 MCG/2 ML AMPUL ONE ×2 (11:20→11:25)
--- NOTE | 2018-10-24 11:33 | OPERATIVE REPORT E ---
Operative Report NAME: BRYCE MUSTAFA : 1995 AGE: 22Y DATE OF SURGERY: 10/24/2018 ROOM: PREOPERATIVE DIAGNOSIS: Desires sterilization. POSTOPERATIVE DIAGNOSIS: Desires sterilization. OPERATION: Bilateral tubal occlusion using Filshie clips. SURGEON: Molly CHANDRA M.D. ANESTHESIA: General. ESTIMATED BLOOD LOSS: Negligible. TISSUE REMOVED: None. PROCEDURE: The patient was placed in a dorsal lithotomy position and prepped and draped in a sterile fashion. A speculum was placed. The cervix was visualized and grasped with a single-tooth tenaculum. The H[place]ka tenaculum was placed. Single-tooth tenaculum was removed. Bladder was drained with a catheter. Attention was turned to the abdomen where a subumbilical semilunar incision was made. Trocar was introduced with insufflation of the abdomen and visualization of the tubes, uterus, and ovaries, which appeared to be normal. No overt abnormalities were noted. The left fallopian tube was then occluded in the proximal portion with good purchase of tissue being noted. The procedure was repeated on the right, again with good purchase noted. Both tubes were identified to the fimbria prior to and after banding. The laparoscope was removed and the abdomen deflated. Trocar and sleeve was removed. The incision was closed with 0 Vicryl for the fascia and 4-0 subcu for the skin. The [place] tenaculum was removed. The patient tolerated it well and was stable to recovery in good condition. DICTATING PHYSICIAN: Molly CHANDRA M.D. [id number] Y#: [id number] ID: [id number] JOB#: [id number] ACCT: [id number] cc:Molly CHANDRA M.D. >
[2018-10-24] MEDS ORDERED: OXYCODONE-ACETAMINOPHEN 5-325 MG TABLET PO PRN (11:46)
[2018-10-24] MEDS ORDERED: ONDANSETRON HCL 8 MG TABLET PO PRN (11:47)
[2018-10-24] MEDS ORDERED: OXYCODONE-ACETAMINOPHEN 5-325 MG TABLET ONE (11:54)
[2018-10-24 13:18] VITALS: BP 154/88
[2018-10-24] MEDS ORDERED: IBUPROFEN 800 MG TABLET PO SCH (14:00)
[2018-10-24] MEDS ORDERED: SUCCINYLCHOLINE CHLORIDE INJ 200 MG/10 ML VIAL ONE (15:42)
== END 2018-10-24 13:30 | disposition home or self-care (01) ==
LOC: OROUT 08:31
PROVIDERS: ATTEND Obstetrics & Gynecology Gynecology
DX: Z30.2 Encounter for sterilization (principal); F17.210 Nicotine dependence, cigarettes, uncomplicated; I10 Essential (primary) hypertension; Z79.82 Long term (current) use of aspirin
CPT/HCPCS: 36415; 85027; 81005; 81025; 94640; 58671; J2250; J1100; J3010; J3490; J2270; J0330; J2405; S0020; J2704; S0028; J0131; 851